=== PATIENT | female | born 1950 | race Caucasian/White ===

== ENCOUNTER 2017-01-10 10:18 | Inpatient (IN) | payer OTHER ==
[2016-12-13 09:26] VITALS: BMI 32.0
--- NOTE | 2016-12-13 09:47 | PAT Medication Instructions ---
Service Date Dec 13, 2016. Current Home Medication List Acetaminophen (Tylenol Arthritis Ext Rel), 1,300 MG PO PRN Hydrochlorothiazide (Hydrochlorothiazide), 1 TAB PO QAM Levothyroxine Sodium (Levothyroxine Sodium), 1 TAB PO QAM Metoprolol Tartrate (Lopressor) (Lopressor), 50 MG PO QAM Multivitamin (Multivitamin), 1 TAB PO QAM Valsartan (Diovan), 80 MG PO QAM Medication Instructions For Your Scheduled Surgery - Hold the following medications the morning of surgery: Multivitamin (Multivitamin), 1 TAB PO QAM Valsartan (Diovan), 80 MG PO QAM Hydrochlorothiazide (Hydrochlorothiazide), 1 TAB PO QAM - Take the following medications the morning of surgery with a sip of water OTHERWISE NOTHING TO EAT OR DRINK AFTER MIDNIGHT: Levothyroxine Sodium (Levothyroxine Sodium), 1 TAB PO QAM Metoprolol Tartrate (Lopressor) (Lopressor), 50 MG PO QAM Acetaminophen (Tylenol Arthritis Ext Rel), 1,300 MG PO PRN (may take if needed up to 4 hours prior to surgery) If you have any questions please call us at [phone] or [phone] or [phone]
[2016-12-13 10:33] LABS: BASO % 0.6 %; BASO ABS # 0.04 K/uL (0-0.2); COMPLETE YES; EOS % 1.8 %; HEMATOCRIT 42.5 % (37-47); IG% 0.2 %; LYMPH % 24.5 %; LYMPH ABS # 1.62 K/uL (1.2-3.4); MEAN CORPUSCULAR HEMOGLOBIN 29.6 pg (25-34); MEAN CORPUSCULAR HGB CONC 34.8 g/dl (32-36); MEAN PLATELET VOLUME 10.1 fL (7.4-10.4); MONO % 7.9 %; PLATELET COUNT 254 K/uL (130-400); WHITE BLOOD COUNT 6.61 K/uL (4.8-10.8)
[2016-12-13 10:45] LABS: INR 0.9 (0.9-1.1)
[2016-12-13 10:59] LABS: BUN/CREATININE RATIO 15.4 (10-20); C-REACTIVE PROTEIN 0.35 mg/dl (0-0.29); CALCIUM 8.8 mg/dl (8.5-10.1); CREATININE 0.82 mg/dl (0.60-1.20); POTASSIUM 3.3 mmol/L (3.5-5.1)
--- NOTE | 2017-01-07 15:36 | HISTORY & PHYSICAL EXAMINATION ---
DATE OF ADMISSION: 01/10/2017 CHIEF COMPLAINT: Left knee pain. HISTORY OF PRESENT ILLNESS: A 66-year-old white female who is now about a year out from right hip replacement who presents for surgical treatment of her left knee. She has got a history of bilateral knee pain and discomfort that has been bothering her for several years. She has been through extensive conservative treatment. The shots helped for about 6 weeks and that is about it. 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 Pain is mostly with weightbearing. It is fairly constant. It hurts her at nighttime. It limits her walking tolerance and ability to stand. She would like to have her left knee replaced. PAST MEDICAL HISTORY: 1. Hypertension. 2. Hypothyroidism. 3. Hepatitis. 4. Mild obesity with BMI 32. PAST SURGICAL HISTORY: Include: 1. Right hip replacement done 01/27/2016. 2. . 3. Hysterectomy. ALLERGIES: LISINOPRIL. CURRENT MEDICINES: Include: 1. Diovan 80 mg daily. 2. Hydrochlorothiazide 12.5 mg a day. 3. Metoprolol 50 mg a day. 4. Levothyroxine 25 mcg a day. SOCIAL HISTORY: A 66-year-old white female. 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 She is . She is going to retire at the end of this year. One drink per week. Does not smoke. FAMILY HISTORY: Significant for diabetes. REVIEW OF SYSTEMS: Negative for diabetes, neurologic problems, vascular problems or bleeding disorders. Denies any current chest pain or shortness of breath. No history of DVT or PE. PHYSICAL EXAMINATION: GENERAL: Reveals a healthy, pleasant middle-aged female. Looks to be in good health. HEAD, EYES, EARS, NOSE, AND THROAT: Exam is benign. NECK: Supple. No lymphadenopathy. LUNGS: Clear to auscultation. HEART: Has a regular rate and rhythm. ABDOMEN: Soft, nontender, nondistended. EXTREMITY EXAMINATION: Grossly neurovascularly intact except as follows: Examination of the left knee reveals the patient to walk and has valgus alignment to her left knee, it is made worse with weightbearing. She has a small knee effusion. Range of motion is 5-120. No instability. No pain with hip motion. X-RAYS: X-rays of the left knee were reviewed. It shows advanced left knee DJD. She has got complete loss of her lateral joint space. She has got osteophytes primarily in the lateral compartment and some in all 3 compartments. She has patellofemoral disease as well. ASSESSMENT: A 66-year-old white female about a year out from right hip replacement with advanced left knee degenerative joint disease. She has failed conservative treatment and would like to have her left knee replaced. PLAN: We are going to take her to the operating room and do a left total knee replacement. The risks and benefits of this procedure were explained to the patient including but not limited to DVT, PE, , infection, neurologic injury, vascular injury, bleeding problems, pain, limited range of motion, stiffness, failure to relief symptoms, incomplete relief of symptoms, need for further surgery in the future, fracture, leg length inequality, nerve palsy, etc. The patient understands and desires to proceed. Informed consent was obtained. As far as discharge plans, she is hoping to be discharged to home with the [facility] home health program. I will be seeing her back 2 weeks postop. We did talk to her about taking her metoprolol the morning of surgery as well as levothyroxine.
[~2017-01-10] VITALS: Ht 167.6 cm; Wt 89.4 kg
[~2017-01-10 10:18] MED LIST: ACET1TAB84 PO; ACETAMINOPHEN 500 MG TAB PO SCH; BUPIVACAINE 0.5 % 5 MG/1 ML PF 10ML VIAL ONE; BUPIVACAINE LIPOSOME 266 MG, BUPIVACAINE/EPINEPHRINE INJ 50 ML, SODIUM CHLORIDE 0.9% PF... INFIL SCH; CEFAZOLIN 2000 MG/60 ML D5W 60 ML IV SCH; DVN80 PO; GABAPENTIN 300 MG CAP PO SCH; HYDR12.55 PO; LACTATED RINGER'S 1000ML 1,000 ML IV SCH; LACTATED RINGER'S 1000ML IV SCH; LACTATED RINGER'S 500 ML IV SCH; LEVO25TA5 PO; METO100T14 PO; METOCLOPRAMIDE HCL 10 MG TAB PO SCH; MULT-506 PO; ROPIVACAINE 0.5% 5 MG/ML 30 ML VIAL ONE; SCOPOLAMINE 1.5 MG TDSY TD SCH; TRANEXAMIC ACID INJ 1,000 MG in SODIUM CHLORIDE 0.9% 100ML 100 ML IV SCH
[2017-01-10 10:50] VITALS: BP 183/80; PULSE 57; TEMP 36.4; O2SAT 97; Ht 167.6 cm; Wt 89.4 kg
--- NOTE | 2017-01-10 11:44 | History & Physical Bridge Note ---
H&P Re-Evaluation Bridge Note: I have examined the patient, reviewed the History & Physical and in the interval since the performance of the History & Physical I have noted the following changes of clinical significance: No changes noted
[2017-01-10] MEDS ORDERED: MIDAZOLAM HCL 1 MG/ML 2ML VIAL ONE ×3 (13:03→14:44)
[2017-01-10] MEDS ORDERED: EpHEDrine SULFATE INJ 50 MG/ML AMP IV PRN ×2 (13:30)
[2017-01-10] MEDS ORDERED: ATROPINE SULFATE 0.1 MG/ML 5ML SYR IV PRN ×2 (13:30)
[2017-01-10] MEDS ORDERED: PHENYLEPHRINE 100MCG/ML 5ML SYR IV PRN ×2 (13:30)
[2017-01-10] MEDS ORDERED: HYDROmorphone INJ 2 MG/ML SYR/VIAL IV PRN ×2 (13:30)
[2017-01-10] MEDS ORDERED: ONDANSETRON INJ 2 MG/ML 2 ML VIAL IV PRN ×3 (13:30→15:45)
[2017-01-10] MEDS ORDERED: BUPIVACAINE LIPOSOME 1/3% 266 MG/20 ML VIAL INFIL ONE ×2 (13:44→14:15)
[2017-01-10] MEDS ORDERED: SODIUM CHLORIDE 0.9% PF 50 ML VIAL ONE ×2 (13:44→14:14)
[2017-01-10] MEDS ORDERED: BACITRACIN 50000 UNIT VIAL ONE (13:44)
[2017-01-10] MEDS ORDERED: BUPIVACAINE/EPINEPHRINE 0.25% 1:200,000 30 ML VIAL ONE (13:44)
[2017-01-10] MEDS ORDERED: PROPOFOL IV EMULSION 10 MG/ML 20 ML VIAL IV ONE ×2 (13:47→14:00)
[2017-01-10] MEDS ORDERED: LIDOCAINE HCL 2% 2 ML VIAL (20MG/ML) ONE ×2 (14:00→15:35)
--- NOTE | 2017-01-10 15:32 | [facility] Post Operative Brief Note ---
Immediate Operative Summary Operative Date Jan 10, 2017. Pre-Operative Diagnosis Left Knee Degenerative Joint Disease Post-Operative Diagnosis Left Knee Degenerative Joint Disease Procedure(s) Performed Left Total Knee Arthroplasty Surgeon Dr. Rudy Jameson Co Chairman Surgeon(s) Yoel Santoro PA-C Estimated Blood Loss 50 ml Findings Left Knee DJD Fluids (cc crystalloids) 1500 cc Specimens A. Left Knee Bone and Tissue Drains None Anesthesia Spinal Complication(s) None Disposition Recovery Room / PACU
[2017-01-10] MEDS ORDERED: DiphenhydrAMINE HCL 50 MG/ML VIAL IV PRN (15:45)
[2017-01-10] MEDS ORDERED: MoRPHine SULFATE 2 MG/ML CARP IV PRN (15:45)
[2017-01-10] MEDS ORDERED: METOCLOPRAMIDE HCL INJ 5 MG/ML 2 ML VIAL IV PRN (15:45)
[2017-01-10] MEDS ORDERED: MAGNESIUM HYDROXIDE SUSP 30 ML UDC PO PRN (15:45)
[2017-01-10] MEDS ORDERED: ALUMINUM/MAGNESIUM/SIMETH (MAALOX MAX) 30 ML UDC PO PRN (15:45)
[2017-01-10] MEDS ORDERED: SILVER SULFADIAZINE 1% CR 50 GM JAR EXT PRN (15:45)
[2017-01-10] MEDS ORDERED: ZOLPIDEM TARTRATE 5 MG TAB PO PRN (15:45)
[2017-01-10] MEDS ORDERED: BISACODYL 10 MG SUPP PR PRN (15:45)
--- NOTE | 2017-01-10 15:59 | DIAGNOSTIC IMAGING REPORT ---
TWO VIEWS LEFT KNEE CLINICAL HISTORY: Postoperative examination. FINDINGS: AP and crosstable lateral portable views of the left knee are obtained. A left knee arthroplasty is in near anatomic alignment. There has been undersurface remodeling of the patella. No acute fracture is seen. There are expected postoperative changes around the knee including skin clips, soft tissue edema, and subcutaneous gas. IMPRESSION: Expected postoperative changes status post left knee arthroplasty. No acute fracture is seen. Electronically signed by: Daniel Walker M.D. 01/10/2017 3:58 PM Dictated Date/Time: 01/10/2017 3:57 PM
[2017-01-10] MEDS: CHECK SCOPOLAMINE PATCH PLACEMENT SCH (16:00)
--- NOTE | 2017-01-10 16:55 | Anesthesiology Progress Note ---
Anesthesia Post Op Note Date & Time Jan 10, 2017 at 16:55 Vital Signs Pain Intensity: 0 Vital Signs Past 12 Hours Date Time Temp Pulse Resp B/P Pulse Ox O2 Delivery O2 Flow Rate FiO2 01/10/17 16:45 50 16 121/51 96 Nasal Cannula 2 01/10/17 16:30 36.4 49 16 135/67 96 Nasal Cannula 2 01/10/17 16:20 36.4 53 16 106/62 99 Nasal Cannula 2 01/10/17 16:10 53 16 145/60 99 Nasal Cannula 2 01/10/17 16:00 53 16 145/58 99 Nasal Cannula 2 01/10/17 15:50 49 16 131/61 100 Mask 10 01/10/17 15:40 36.8 49 16 125/54 100 Mask 10 01/10/17 10:50 36.4 57 16 183/80 97 Room Air Notes Mental Status: alert / awake / arousable, participated in evaluation Pt Amnestic to Procedure: Yes Nausea / Vomiting: adequately controlled Pain: adequately controlled Airway Patency, RR, SpO2: stable & adequate BP & HR: stable & adequate Hydration State: stable & adequate Neuraxial Anesthesia: was administered, sensory block is resolving Anesthetic Complications: no major complications apparent
[2017-01-10] MEDS ORDERED: HYDROmorphone INJ 1 MG/ML SYR ONE (19:02)
--- NOTE | 2017-01-10 19:26 | OPERATIVE REPORT ---
DATE OF OPERATION: 01/10/2017 SURGEON: Rudy Jameson MD SECURITY RISK ANALYST: DIMITRI Rebollar. PREOPERATIVE DIAGNOSIS: Left knee degenerative joint disease. POSTOPERATIVE DIAGNOSIS: Same. PROCEDURE PERFORMED: Left cemented posterior stabilized total knee arthroplasty. COMPLICATIONS: None. ESTIMATED BLOOD LOSS: 50 mL. FLUID REPLACEMENT: 1500 mL crystalloid fluid replacement. TOURNIQUET TIME: 49 minutes at 300 mmHg. ANESTHESIA: Spinal with adductor canal block. DRAINS: None. SPECIMENS: Left knee sent for pathology. OPERATIVE INDICATIONS: The patient is a 66-year-old female who has had a long history of orthopedic symptoms and problems. She underwent a right hip replacement 1 year ago and has done well from this. Over the past year, she has developed increasing and persistently progressive pain in her left knee. She has failed conservative treatment. X-rays revealed advanced lateral compartment DJD with complete loss of her joint space. The patient is indicated for operative treatment. OPERATIVE FINDINGS: Operative findings revealed advanced left knee DJD. She had grade 4 [id number] disease of the lateral femoral condyle and lateral tibial plateau. She had a valgus deformity to her knee. She also got grade 4 changes of the trochlea and to her patella. The medial compartment showed some spotty grade 4 changes. She had a moderate sized joint effusion. OPERATIVE IMPLANTS: Operative implants consisted of: 1. A Biomet Vanguard size 62.5 left posterior stabilized femoral component. 2. Biomet size 67 tibial tray. 3. A Biomet 10 mm posterior stabilized polyethylene insert. 4. A 31 x 8 all poly patella. OPERATIVE PROCEDURE: The patient was taken to the operating room, identified and placed on the operating table in supine position. All contact areas were appropriately padded. IV antibiotics were provided by anesthesia team. A spinal anesthetic and adductor canal block had been provided in the holding area. Fritz catheter was placed in sterile fashion. A left thigh tourniquet was then placed and left lower extremity was then prepped and draped in the usual sterile fashion. Left leg was elevated and exsanguinated with an Esmarch and tourniquet was placed at 300 mmHg. An anterior approach to the left knee was then performed through a longitudinal incision centered over the patella. Sharp dissection was carried out through the subcutaneous tissue, down to the level of the extensor mechanism. A medial parapatellar arthrotomy incision was made. Some subperiosteal dissection was carried out medially. The fat pad was resected from beneath the patellar tendon. The lateral patellofemoral ligament was released. The patella was everted and knee was flexed. The osteophytes were taken off the distal femur. The ACL was absent. The PCL was released from the distal femur and the tibia subluxated anteriorly. The external tibial alignment jig was then placed in the anterior face of the tibia and adjusted 12 mm medially. Proximal tibial cut was made to remove about 3 mm of bone from the medial side. The tibia was then sized to a size 67. Attention was then drawn to the femur. The distal femur was entered with a sharp drill bit. Intramedullary canal was suctioned. A left 5-degree valgus cutting guide was placed. Distal femoral cutting block was pinned in place. Distal femoral cut was made to take an additional 3 mm of bone off the distal femur. The knee was brought out into full extension. The flexion and extension gaps were equal. Therefore, no lateral release was performed. The femur was then sized to a 62.5. We did downsize this just slightly. The AP cutting block was pinned parallel to the epicondylar axis, which was 5 degrees of external rotation. The anterior cut, anterior chamfer, posterior cut, posterior chamfer cuts were made. Box cutting guide was placed and adjusted slightly lateral and the box cut was made. The knee was flexed. The remnants of the medial and lateral menisci were excised. The osteophytes were taken off the posterior aspect of the femur. I did release the popliteus tendon as the flexion gap was tight on the lateral side. A trial femoral component was placed. The tibial tray was pinned in maximum external rotation and drill and stem punch were used to create defect in proximal tibia for the tibial tray. The knee was then trialed and a 10 mm insert fit most appropriately. Attention was then drawn to the patella. The patella was cleaned of all soft tissues. Patellar thickness measured 22 mm, was cut down to 13. It was sized to a size 31 patella. Lug holes were drilled for the 31 patella. Lateral osteophyte was removed. Patella button was placed. Knee was taken through range of motion and the patella tracked nicely with no thumbs test. Attention was then drawn toward placement of the permanent components. All trial components were removed. The knee was irrigated with copious amounts of pulsatile lavage solution. A bone plug was placed in the distal femur to limit blood loss. A double batch of Palacos G cement was mixed. A left size 62.5 posterior stabilized femoral component, size 67 tibial tray, 10 mm posterior stabilized polyethylene insert, and a 31 x 8 all poly patella were then cemented in place. Knee was brought out into full extension until cement hardened. A final cement check was then performed. Pericapsular tissues were injected with 100 mL of a combination of 20 mL of Exparel, 30 mL of normal saline, 50 mL of 0.25% Marcaine with epinephrine. The patient did receive 1 gram of tranexamic acid. The tourniquet was then let down for a final tourniquet time of 49 minutes. Hemostasis was assured with use of electrocautery. The wound was once again irrigated. The extensor mechanism was then closed with a combination of #1 PDS suture and #1 Vicryl suture in a [id number] fashion. Extensor mechanism was checked and found to be intact. The subcutaneous tissues were then closed with 2-0 Dexon suture in a buried interrupted fashion. Skin was closed with skin albert. Leg was then cleaned and dried and a sterile dressing composed of Xeroform, 4 x 4, sterile cast padding and Suresh bandage were applied. The patient then transferred to the recovery room in stable condition. The patient tolerated the procedure well with no complications. All needle and sponge counts were correct at the end of the operation. I attest to the content of the Intraoperative Record and any orders documented therein. Any exceptio ns are noted below.
[2017-01-10 20:50] VITALS: BP 146/80; PULSE 50; TEMP 36.8; O2SAT 97
[2017-01-10] MEDS ORDERED: TRANEXAMIC ACID INJ 1,000 MG in SODIUM CHLORIDE 0.9% 100ML 100 ML IV SCH (21:00)
[2017-01-10 21:50] VITALS: BP 145/78; PULSE 54; TEMP 36.6; O2SAT 98
[2017-01-10] MEDS: D5W AND 1/2NSS + 20MEQ KCL 1,000 ML IV SCH (21:54)
[2017-01-10] MEDS: CEFAZOLIN IV 2,000 MG in DEXTROSE 5% 50ML 50 ML IV SCH (21:54)
[2017-01-10] MEDS: DOCUSATE SODIUM 100 MG CAP PO SCH (21:55)
[2017-01-10] MEDS: TAPENTADOL ER 50 MG TABCR PO SCH (21:56)
[2017-01-10] MEDS: KETOROLAC TROMETHAMINE 15 MG/ML VIAL IV. SCH (21:56)
[2017-01-10] MEDS: ASPIRIN 325 MG ECTAB PO SCH (21:56)
[2017-01-10] MEDS: ACETAMINOPHEN 500 MG TAB PO SCH (21:57)
[2017-01-10 23:42] VITALS: BP 128/75; PULSE 57; TEMP 36.5; O2SAT 98
[2017-01-11] VITALS (9 sets, daily range): BP systolic 132–169; BP diastolic 72–88; PULSE 51–74; TEMP 36.4–36.9; O2SAT 95–99
[2017-01-11] MEDS: KETOROLAC TROMETHAMINE 15 MG/ML VIAL IV. SCH ×4 (03:48→22:01)
[2017-01-11] MEDS: OXYCODONE HCL IR 5 MG TAB (IMMEDIATE RELEASE) PO PRN ×3 (05:56→21:10)
[2017-01-11] MEDS: CEFAZOLIN IV 2,000 MG in DEXTROSE 5% 50ML 50 ML IV SCH (05:56)
[2017-01-11] MEDS: LEVOTHYROXINE 25 MCG TAB PO SCH (05:57)
[2017-01-11] MEDS: ACETAMINOPHEN 500 MG TAB PO SCH ×3 (05:58→22:00)
[2017-01-11] MEDS: D5W AND 1/2NSS + 20MEQ KCL 1,000 ML IV SCH ×2 (05:58→16:15)
[2017-01-11 06:55] LABS: HEMATOCRIT 37.5 % (37-47); MEAN CELL VOLUME 86.4 fL (80-100); MEAN CORPUSCULAR HGB CONC 33.6 g/dl (32-36); MEAN PLATELET VOLUME 10.1 fL (7.4-10.4); PLATELET COUNT 252 K/uL (130-400); RED BLOOD COUNT 4.34 M/uL (4.2-5.4); WHITE BLOOD COUNT 9.75 K/uL (4.8-10.8)
[2017-01-11 07:29] LABS: BUN/CREATININE RATIO 11.6 (10-20); CREATININE 0.8 mg/dl (0.60-1.20); POTASSIUM 3.7 mmol/L (3.5-5.1)
[2017-01-11] MEDS: CHECK SCOPOLAMINE PATCH PLACEMENT SCH ×3 (07:41→15:36)
[2017-01-11] MEDS: MULTIVITAMIN TAB PO SCH ×2 (08:44→08:46)
[2017-01-11] MEDS: TAPENTADOL ER 50 MG TABCR PO SCH ×2 (08:46→21:09)
[2017-01-11] MEDS: DOCUSATE SODIUM 100 MG CAP PO SCH ×2 (08:47→21:09)
[2017-01-11] MEDS: HYDROCHLOROTHIAZIDE 25 MG TAB PO SCH (08:47)
[2017-01-11] MEDS: PANTOprazole SOD 40 MG TAB PO SCH (08:47)
[2017-01-11] MEDS: ASPIRIN 325 MG ECTAB PO SCH ×2 (08:47→21:09)
[2017-01-11] MEDS: FERROUS GLUCONATE 324 MG TAB PO SCH ×3 (08:47→17:10)
[2017-01-11] MEDS: VALSARTAN 80 MG TAB PO SCH (08:47)
[2017-01-11] MEDS: METOPROLOL TARTRATE 100 MG TAB PO SCH (08:48)
[2017-01-11] MEDS ORDERED: HYDROCHLOROTHIAZIDE 25 MG TAB PO SCH (09:00)
--- NOTE | 2017-01-11 09:52 | PROGRESS NOTE ---
DATE: 01/11/2017 SUBJECTIVE: A 66-year-old white female postop day #1 from a left knee replacement. She is doing well. Pain is reasonably well controlled. No chest pain or shortness of breath. Not feeling dizzy or lightheaded. OBJECTIVE: VITAL SIGNS: Temperature is 36.4. Vital signs stable. PHYSICAL EXAMINATION: GENERAL: Reveals a healthy, pleasant middle-aged female. She is sitting up in her bed and talking to her . Looks comfortable. LUNGS: Clear to auscultation. HEART: Regular rate and rhythm. ABDOMEN: Soft, nontender, nondistended. EXTREMITIES: Grossly neurovascularly intact except as follows: Examination of the left lower extremity reveals the dressing to be clean, dry and intact. Leg is well aligned. She can dorsiflex and plantarflex her foot appropriately. She is neurologically intact. LABORATORY DATA: Hemoglobin 12.6, hematocrit 37.5. Electrolytes are stable. ASSESSMENT: A 66-year-old white female postop day #1 from a left knee replacement, doing pretty well. Pain is controlled. She is neurologically intact. PLAN: 1. DVT prophylaxis including thigh-high TEDs, SCDs, and aspirin twice a day. 2. PT/OT. Weightbearing as tolerated. Left total knee protocol. 3. Pain control, doing pretty well with current pain regimen. 4. Disposition: She is planning to be discharged to home with some home health once adequately recovered.
--- NOTE | 2017-01-11 12:55 | Anesthesiology Progress Note ---
Anesthesia Post Op Note Date & Time Jan 11, 2017 at 12:54 Vital Signs Vital Signs Past 12 Hours Date Time Temp Pulse Resp B/P Pulse Ox O2 Delivery O2 Flow Rate FiO2 01/11/17 12:41 58 99 01/11/17 11:40 36.6 62 20 148/80 95 Room Air 01/11/17 08:40 96 Room Air 01/11/17 07:55 36.4 51 16 146/80 96 Room Air 01/11/17 07:37 36.9 52 20 144/88 96 Room Air 01/11/17 04:34 95 Nasal Cannula 2.0 01/11/17 03:35 36.6 74 18 133/74 95 Nasal Cannula 2.0 Notes Mental Status: alert / awake / arousable, participated in evaluation Pt Amnestic to Procedure: Yes Nausea / Vomiting: adequately controlled Pain: adequately controlled Airway Patency, RR, SpO2: stable & adequate BP & HR: stable & adequate Hydration State: stable & adequate Neuraxial Anesthesia: was administered, sensory block resolved Anesthetic Complications: no major complications apparent
[2017-01-11] MEDS ORDERED: RXC5 PO (21:24)
[2017-01-11] MEDS ORDERED: MORP15TA19 PO (21:24)
[2017-01-11] MEDS ORDERED: ASPEC325 PO (21:24)
[2017-01-11] MEDS ORDERED: ACET-1138 PO (21:24)
--- NOTE | 2017-01-11 21:26 | Discharge Instructions ---
Discharge Instructions Date of Service Jan 11, 2017. Admission Reason for Admission: Left Knee Degenerative Joint Disease Discharge Discharge Diagnosis / Problem: Left Knee Replacement Discharge Goals Goal(s): Decrease discomfort, Improve function, Increase independence, Improve disease control, Therapeutic intervention Activity Recommendations Activity Limitations: per Instructions/Follow-up section . Current Hospital Diet Patient's current hospital diet: Regular Diet Discharge Diet Recommended Diet: Regular Diet Procedures Procedures Performed: Left Total Knee Arthroplasty Pending Studies Studies pending at discharge: no Medical Emergencies . Who to Call and When: Medical Emergencies: If at any time you feel your situation is an emergency, please call 911 immediately. . Non-Emergent Contact Non-Emergency issues call your: Surgeon . "Provider Documentation" section prepared by Rudy Jameson. VTE Core Measure Inpt VTE Proph given/why not?: Other Anticoagulation, T.E.D. Stockings, SCD's
[2017-01-12] MEDS: CHECK SCOPOLAMINE PATCH PLACEMENT SCH
[2017-01-12] MEDS: KETOROLAC TROMETHAMINE 15 MG/ML VIAL IV. SCH ×2 (04:17→10:14)
[2017-01-12] MEDS: ACETAMINOPHEN 500 MG TAB PO SCH (05:49)
[2017-01-12] MEDS: LEVOTHYROXINE 25 MCG TAB PO SCH (05:49)
--- NOTE | 2017-01-12 07:28 | PROGRESS NOTE ---
DATE: 01/12/2017 SUBJECTIVE: 66-year-old white female postop day 2 from a left knee replacement. She is doing well. Pain has been controlled. Soreness but manageable. No chest pain or shortness of breath. Not feeling dizzy or lightheaded. OBJECTIVE: VITAL SIGNS: Temperature 36.8. Vital signs stable. PHYSICAL EXAMINATION: GENERAL: Reveals a healthy, pleasant middle-aged female. She is sitting up in bed and looks comfortable. EXTREMITIES: Examination of the left leg reveals the dressing to be clean, dry and intact. Leg is well aligned. Calf is soft and supple. She can dorsiflex and plantarflex her foot appropriately. She is neurologically intact. ASSESSMENT: 66-year-old white female postop day 2 from left knee replacement, doing well. PLAN: 1. DVT prophylaxis including thigh-high TEDS, SCDs, and aspirin twice a day. 2. PT/OT. Weightbearing as tolerated. Left total knee protocol. 3. Pain control, doing well with current pain regimen. 4. Disposition: Plan to discharge to home with some home health.
[2017-01-12 07:52] VITALS: BP 157/88; PULSE 76; TEMP 36.6; O2SAT 97
[2017-01-12] MEDS: FERROUS GLUCONATE 324 MG TAB PO SCH ×2 (08:34→12:45)
[2017-01-12] MEDS: ASPIRIN 325 MG ECTAB PO SCH (08:36)
[2017-01-12] MEDS: VALSARTAN 80 MG TAB PO SCH (08:36)
[2017-01-12] MEDS: DOCUSATE SODIUM 100 MG CAP PO SCH (08:36)
[2017-01-12] MEDS: HYDROCHLOROTHIAZIDE 25 MG TAB PO SCH (08:37)
[2017-01-12] MEDS: METOPROLOL TARTRATE 100 MG TAB PO SCH (08:37)
[2017-01-12] MEDS: MULTIVITAMIN TAB PO SCH ×2 (08:38)
[2017-01-12] MEDS: PANTOprazole SOD 40 MG TAB PO SCH (08:39)
[2017-01-12] MEDS: TAPENTADOL ER 50 MG TABCR PO SCH (08:50)
[2017-01-12 10:31] VITALS: BP 157/88; PULSE 76; TEMP 36.6; O2SAT 97
--- NOTE | 2017-01-12 11:36 | Discharge Instructions ---
Discharge Instructions Date of Service Jan 12, 2017. Admission Reason for Admission: Left Knee Degenerative Joint Disease Discharge Discharge Diagnosis / Problem: Left Knee REplacement Discharge Goals Goal(s): Decrease discomfort, Improve function, Increase independence, Improve disease control, Therapeutic intervention Activity Recommendations Activity Limitations: per Instructions/Follow-up section Weightbearing Status: Left weightbearing . Instructions / Follow-Up Instructions / Follow-Up ACTIVITY RECOMMENDATIONS: Physical Therapy: * You will go to physical therapy three times each week for four to six weeks after your surgery in order to regain your knee range of motion and to retrain your knee to work properly. * It is just as important to make sure you are getting your knee perfectly straight as it is to regain your knee bend. * Taking a pain pill an hour before therapy can help you have a more productive and comfortable therapy session. Home Exercise: * You were shown a series of exercises (heel props, heel slides, etc.) in the hospital. Do these exercises three to four times each day including the exercises you were shown in physical therapy. Walking: * Get up and walk several times each day. For the first four weeks, try not to stand or walk for more than one hour at a time. If you do stand or walk for more than one hour, you will not hurt anything, but your knee and leg will likely swell. * As you feel comfortable, you may change from the walker or crutches to a cane and then to independent walking. MEDICATIONS: New Medicine: * You will likely be taking one or more of these medications: 1. MS Contin - A long-acting pain medication. Take 1 tablet twice a day for the first ten days to decrease your baseline level of pain. 2. Oxycodone - A quick and shorter-acting pain medication. Take one to two tablets every four to six hours to lessen your pain. 3. Aspirin - Thins your blood to lessen the chance of forming a blood clot. * The most common side effects of pain medicine and iron are nausea and constipation. If nausea or constipation is too much of a problem or if you have any questions about your new medicines or doses, call [facility] at [phone]. We will try to help you manage these issues. VERY IMPORTANT TO READ AND REVIEW" Pain: * The immediate post-operative period after knee replacement surgery is often quite painful. * You are given a prescription for pain medicine. You should take it, as directed, when you need it, especially before physical therapy and before going to bed. Pain that interferes with sleep is very common and can last several months. * You will likely need pain medicine for the first four to six weeks. It will not stop all of the pain. The pain will lessen and as you feel better, you may change to milder pain medicine such as Tylenol. * The most common side effects of pain medicine are nausea and constipation, so don't take more than you need. SPECIAL CARE INSTRUCTIONS: TEDs/Elastic Stockings: * The white elastic stockings help limit swelling and prevent blood clots from forming in your legs. The more you wear them, the more they work. * Wear them for six weeks after knee replacement surgery and four weeks after partial knee replacement. Prevention of Infection: * Take antibiotics one hour before any dental cleaning, dental work, urological procedure, gastrointestinal procedure or any invasive surgery in order to prevent your new joint from getting infected. * You may get the antibiotics from the doctor performing the procedure or you may call our office at before and we will call in a prescription to the pharmacy of your choice. Things to Watch For: * Drainage from the incision site that occurs more than one week after your surgery. * Severely increased knee/leg pain or swelling. * Increased redness at the incision site. * Fever above 102 degrees Fahrenheit. * Unusual chest pain or shortness of breath. * Unusual pain or burning with urination. Call [facility] at with any of the above problems or if you have any questions about your medicines or recovery. FOLLOW UP VISIT: Make an appointment to see your doctor for approximately two weeks after surgery for a progress check and staple removal by calling the office at . Current Hospital Diet Patient's current hospital diet: Regular Diet Discharge Diet Recommended Diet: Regular Diet Procedures Procedures Performed: Left Total Knee Arthroplasty Pending Studies Studies pending at discharge: no Medical Emergencies . Who to Call and When: Medical Emergencies: If at any time you feel your situation is an emergency, please call [phone] immediately. . Non-Emergent Contact Non-Emergency issues call your: Surgeon . "Provider Documentation" section prepared by Rudy Jameson. VTE Core Measure Inpt VTE Proph given/why not?: Other Anticoagulation, T.E.D. Stockings, SCD's
--- NOTE | 2017-01-19 01:54 | DISCHARGE SUMMARY ---
ADMITTING PHYSICIAN AND SURGEON: Dr. Jameson. ADMITTING DIAGNOSIS: Left knee degenerative joint disease. SURGERY PERFORMED: Left total knee arthroplasty. SECONDARY DIAGNOSES: Hypertension, hypothyroidism, hepatitis, mild obesity. CONSULTS: None obtained. HISTORY AND PHYSICAL EXAMINATION: Well documented in the patient's chart. HOSPITAL COURSE: The patient was admitted on 01/10/2017 underwent total knee arthroplasty. She tolerated the procedure well. There were no complications and transferred to the PACU postoperatively and later to the orthopedic floor for further care. She was given Ancef for antibiotic prophylaxis, ANNA MARIE stockings, SCDs and aspirin for DVT prophylaxis. Hemoglobin, hematocrit and vital signs were monitored during her hospital stay and remained stable. She did not require any blood transfusions. There were no complications. By postoperative day 2, she was tolerating a general diet, pain was controlled with oral pain medicine. She was participating in physical therapy and had no signs or symptoms of deep vein thrombosis. On postop day 2, she was discharged home in good condition, set up with home health services. She was given printed discharge instructions including Extra Strength Tylenol, aspirin 325 mg b.i.d., MS Contin and oxycodone. She can continue her home medications with the exception of her home dose of Tylenol. Continue physical therapy, weightbearing as tolerated, ANNA MARIE stockings. Follow up in 10-12 days or sooner if there are problems or concerns.
== END 2017-01-12 13:04 | disposition home health service (06) | DRG 470 ==
LOC: ENRESERVDT → ENRESERVTM → C.ACU 10:18 → C.3E 15:36
PROVIDERS: ADMIT Orthopaedic Surgery Sports Medicine; ATTEND Orthopaedic Surgery Sports Medicine
PROC: 0SRD0J9 Replacement of Left Knee Joint with Synthetic Substitute, Cemented, Open Approach (ICD-10-PCS; principal; 2017-01-10 12:30)
DX: M17.12 Unilateral primary osteoarthritis, left knee (principal); M21.062 Valgus deformity, not elsewhere classified, left knee; M25.462 Effusion, left knee; I10 Essential (primary) hypertension; E03.9 Hypothyroidism, unspecified; E66.9 Obesity, unspecified; Z68.32 Body mass index [BMI] 32.0-32.9, adult; Z96.641 Presence of right artificial hip joint; Z86.19 Personal history of other infectious and parasitic diseases; Z79.899 Other long term (current) drug therapy

== ENCOUNTER 2020-12-29 05:12 | Observation (INO) ==
--- NOTE | 2020-12-10 09:12 | Anesthesiology Consultation ---
Date of Service December 10, 2020 Assessment & Plan (1) Encounter for pre-operative examination: Per assessment on 12/10: Travel screen- Lives in [facility]. 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 Uses PPE in public. Advised importance of following strict COVID precaution guidelines especially after preop COVID testing done. No known COVID- 19 positive contacts or current COVID-19 related symptoms. Surgeon arranging preop COVID testing (scheduled 12/23; Gopal Houstonfloridalma). Awaiting results. Chart Review Chart Review: Acceptable Risk for Surgery and Patient seen in Pre Admission Testing Teaching & Discussion Pre-Anesthesia Teaching/Discussion Notes: Instructed NPO after midnight before surgery,except medications with 15 cc of water. Medication instructions provided according to the PAT guidelines. History Surgery Operation Date: 12/29/20 10:55 Proposed Procedures p Left Total Hip Arthroplasty - Rudy Jameson MD Height/Weight Height: 5 ft 6 in Weight: 92.6 kg Allergies Allergy/AdvReac Type Severity Reaction Status Date / Time crab Allergy Unknown Rash, hives Verified 12/07/20 14:47 CYNTHIA Inhibitors AdvReac Unknown Cough Verified 12/07/20 14:47 Medications Home Medications Medication Instructions Recorded Confirmed Last Taken valsartan 80 mg PO DAILY 12/10/20 12/10/20 Unknown Past Medical History Medical History Arthritis of left hip Hypertension Migraine hx Obesity Ulcerative colitis stable Exercise / Class Metabolic Activity III < 4 Walking/Shop/Light housework Past Family History Family History Father Family history of diabetes mellitus Past Surgical History Surgical History History of section History of cholecystectomy History of colonoscopy Multiple History of esophagogastroduodenoscopy (EGD) History of hysterectomy Total History of left knee replacement 2017 History of right hip replacement 2016 Past Anesthesia History No Hx of Anesthesia Complications (except PONV) and No Family Hx of Anesthesia Complications History of PONV History of PONV (with remote surgery (no issue with left TKA)) and Hx of Motion Sickness (remote hx) Social History Smoking Status: Former smoker Do You Dip or Chew Tobacco: No Smoking End Date: Social use in college Hx Alcohol Use: Yes Alcohol type: beer and hard liquor alcohol intake frequency: a few times a month Hx Substance Use: No Review of Systems Patient denies chest pain, shortness of breath, dyspnea on exertion, joint pain, reflux, cough, wheezing, palpitations. Physical Exam Vital Signs VITALS BP 164/77 (recently started on Valsartan; PCP monitoring) P 73 TEMP 98.2 SP02 95%RA RESP 16 PHYSICAL Full neck and c-spine range of motion. Full TMJ range of motion. TMD 3 finger breaths Mallampati Score 2 Dentition: several missing molars Lungs: clear throughout to auscultation Cardiac: regular rate and rhythm, no murmurs noted Spine: normal Carotid arteries: negative bruit Extremities: no edema Testing Laboratory Results 12/10/20 09:42 PT 9.8 Seconds (9.0-12.0) 12/10/20 09:42 INR 1.0 (0.9-1.1) 12/10/20 09:42 APTT 25.3 Seconds (21.0-31.0) 12/10/20 09:42 Blood Type AB Positive 12/10/20 09:42 Antibody Screen NEGATIVE 12/10/20 09:42 12/07/20 SODIUM 145 POTASSIUM 3.8 CHLORIDE 105 CO2 28 BUN 11 CREATININE 0.9 GLUCOSE 128 TSH 4.43 FREE T4 1.2 (WNL) Electrocardiogram Date: 12/11/20 NSR at 69bpm. Minimal voltage criteria for LVH, may be normal variant. No sign ificant change compared to 01/19/16 per equipment service lead review. Chest X-Ray Date: 12/10/20 FINDINGS: Cardiac silhouette is mildly enlarged. No pneumothorax, pleural effusion, airspace consolidation or overt pulmonary edema. Degenerative changes of the shoulders and spine. Mild convex right curvature of the mid to lower thoracic spine. Cholecystectomy. IMPRESSION: No acute process.
--- NOTE | 2020-12-10 10:08 | XRay Report ---
XR chest Pre-admission PA/Lat HISTORY: 70 years-old Female pat preoperative exam. No acute chest complaints COMPARISON: Chest radiographs 01/19/2016 TECHNIQUE: PA and lateral views of the chest FINDINGS: Cardiac silhouette is mildly enlarged. No pneumothorax, pleural effusion, airspace consolidation or o vert pulmonary edema. Degenerative changes of the shoulders and spine. Mild convex right curvature of the mid to lower thoracic spine. Cholecystectomy. IMPRESSION: No acute process. ACT 112: Negative or not required by law. The above report was generated using voice recognition software. It may contain grammatical, syntax o r spelling errors. Electronically signed by: Faizan Mcclendon M.D. 12/10/2020 10:07 AM
[2020-12-10 12:14] LABS: Partial Thromboplastin Time 25.3 Seconds (21.0-31.0); Prothrombin Time 9.8 Seconds (9.0-12.0)
[2020-12-10 12:22] LABS: Basophils # (auto) 0.03 K/uL (0-0.2); Basophils % (auto) 0.5 %; Eosinophils # (auto) 0.09 K/uL (0-0.5); Eosinophils % (auto) 1.5 %; Hematocrit (blood only) 45.1 % (37-47); Hemoglobin 15.5 g/dL (12.0-16.0); Immature Granulocytes # (auto) 0.01 K/uL (0.00-0.02); Immature Granulocytes % (auto) 0.2 %; Lymphocytes # (auto) 1.61 K/uL (1.2-3.4); Lymphocytes % (auto) 26.4 %; Mean Corpuscular Hemoglobin 28.8 pg (25-34); Mean Corpuscular Hgb Conc 34.4 g/dL (32-36); Mean Corpuscular Volume 83.8 fL (80-100); Mean Platelet Volume 10.6 fL (7.4-10.4); Monocytes # (auto) 0.54 K/uL (0.11-0.59); Monocytes % (auto) 8.8 %; Neutrophils # (auto) 3.83 K/uL (1.4-6.5); Neutrophils % (auto) 62.6 %; Platelet Count 260 K/uL (130-400); RDW Standard Deviation 42.8 fL (36.4-46.3); Red Blood Count 5.38 M/uL (4.2-5.4); White Blood Count 6.11 K/uL (4.8-10.8)
--- NOTE | 2020-12-10 16:53 | Electrocardiogram Report ---
Test Reason : Blood Pressure : / mmHG Vent. Rate : 069 BPM Atrial Rate : 069 BPM P-R Int : 206 ms QRS Dur : 092 ms QT Int : 432 ms P-R-T Axes : 051 -28 056 degrees QTc Int : 462 ms Normal sinus rhythm Minimal voltage criteria for LVH, may be normal variant Borderline ECG When compared with ECG of 19-JAN-2016 09:18, No significant change was found Confirmed by Deep Pan ([id number]) on 12/10/2020 4:52:57 PM Referred By: Rudy Jameson Confirmed By:Roman Pan
--- NOTE | 2020-12-25 19:28 | History and Physical Report ---
DATE OF ADMISSION: 12/29/2020 CHIEF COMPLAINT: Left hip and groin pain. HISTORY OF PRESENT ILLNESS: The patient is a 70-year-old female well known to me from a previous right hip replacement done in 2012 and left knee replacement done in 2016. Over the past 8 months, she has developed increased pain and discomfort in her left hip and groin area. No particular injury. It has gradually gotten worse to the point where it is a constant pain. She has a limited walking ability due to the pain. She has difficulty putting her shoes and socks on. The more she walks, the more she limps. Denies any back pain. No numbness or radicular symptoms. She has failed medical management. She would like to have her hip fixed. PAST MEDICAL HISTORY: 1. Mild obesity with BMI of 33. 2. Arthritis. 3. Hepatitis. PAST SURGICAL HISTORY: Includes, 1. . 2. Total hysterectomy. 3. Right hip replacement done on 01/26/2013. 4. Left knee replacement done on 01/10/2017. 5. Cholecystectomy. ALLERGIES: CYNTHIA INHIBITORS. CURRENT MEDICATIONS: Include, 1. Tylenol. 2. Aspirin. 3. Hydrochlorothiazide 4. Thyroid replacement. 5. Metoprolol. 6. Multivitamin. 7. Diovan. SOCIAL HISTORY: Significant for a 70-year-old female. She is . Does not smoke. FAMILY HISTORY: Noncontributory. REVIEW OF SYSTEMS: Negative for diabetes, neurologic problem, vascular problems or bleeding disorders. Denies any chest pain or shortness of breath. She does have a history of high blood pressure. No history of DVT or PE. PHYSICAL EXAMINATION: GENERAL: Shows a pleasant, middle-aged female. She looks to be in pretty good health. HEENT: Benign. NECK: Supple, no lymphadenopathy. LUNGS: Clear to auscultation. ABDOMEN: Soft, nontender, nondistended. EXTREMITIES: Grossly neurovascularly intact except as follows: Examination of the left hip revealed patient walks with an antalgic gait. She is about 0.5 cm short on the left side compared to the right, maybe it is up to 1 cm. She has pain with any type of hip motion. She has stiffness with internal rotation, which recreates her groin pain. She has got well-healed incisions around her knee with no swelling. Negative straight leg raise. X-RAYS: X-rays of the left hip reveal advanced left hip DJD. She has got concentric hip arthritis. She has got complete loss of the joint space. She has got osteophytes around the acetabulum and femoral head. The right hip replacement looks to be in good position without signs of problems. ASSESSMENT: A 70-year-old female with a history of hypertension, elevated cholesterol, and mild obesity, now status post right hip replacement 7 years ago and left knee replacement with advanced left hip degenerative joint disease. She has failed conservative treatment and would like to have her left hip replaced. PLAN: We will take her to the operating room and do a left total hip replacement. The risks and benefits of this procedure were explained to the patient including but not limited to DVT, PE, , infection, neurological injury, vascular injury, bleeding problem, pain, limited range of motion, stiffness, failure to relieve her symptoms, incomplete relief of symptoms, need for further surgery in the future, fracture, leg length inequality, dislocation, etc. The patient understands and desires to proceed. Informed consent was obtained. We will do the best we can to make her leg lengths equal. She had a lot of problems with side effects of oxycodone and we will use tramadol for postoperative pain control. We will likely give her some Decadron to help with postoperative nausea and Zofran and scopolamine patch. As far as discharge plans, she is planning to be discharged to home using [facility] home health program.
[2020-12-29] MEDS ORDERED: TRANEXAMIC ACID 1,000 MG **IV Pre-op IV SCH (06:00)
[2020-12-29] MEDS ORDERED: ceFAZolin 2000MG 2,000 MG/15 ML SYR IV SCH (06:00)
[2020-12-29] MEDS ORDERED: LR 500ML BOLUS, THEN 15ML/HR IV SCH (06:00)
[2020-12-29] MEDS ORDERED: ACETAMINOPHEN 500 MG TAB PO SCH (06:00)
[2020-12-29] MEDS ORDERED: METOCLOPRAMIDE HCL 10 MG TABLET PO SCH (06:00)
[2020-12-29] MEDS ORDERED: FAMOTIDINE 20 MG TAB PO SCH (06:00)
[2020-12-29] MEDS ORDERED: LR 60ML/HR IV SCH (06:00)
[2020-12-29] MEDS ORDERED: GABAPENTIN 300 MG CAP PO SCH (06:00)
[2020-12-29] MEDS ORDERED: BUPIVACAINE 0.5 % 5 MG/1 ML PF 10ML VIAL ONE (06:14)
[2020-12-29] MEDS ORDERED: BACITRACIN INJ 50,000 UNIT VIAL ONE (06:30)
[2020-12-29] MEDS ORDERED: BUPIVACAINE/EPINEPHRINE 0.5% MPF 1:200,000 30 ML VIAL ONE (06:30)
[2020-12-29] MEDS ORDERED: PROPOFOL IV EMULSION 10 MG/ML 20 ML VIAL IV ONE (06:42)
[2020-12-29] MEDS ORDERED: MIDAZOLAM HCL 1 MG/ML 2ML VIAL ONE ×2 (06:43)
--- NOTE | 2020-12-29 06:56 | History & Physical Bridge Note ---
Date of Service December 29, 2020 History & Physical Bridge Note I have examined the patient, reviewed the History & Physical and in the interval since the performance of the History & Physical I have noted the following changes of clinical significance: no changes noted
[2020-12-29] MEDS ORDERED: ePHEDrine sulfate 50 MG/ML AMP IV PRN (07:03)
[2020-12-29] MEDS ORDERED: ATROPINE SULFATE 0.1 MG/ML 10ML SYR IV PRN (07:03)
[2020-12-29] MEDS ORDERED: ONDANSETRON INJ 2 MG/ML 2 ML VIAL IV PRN ×2 (07:03→09:55)
[2020-12-29] MEDS ORDERED: fentaNYL citrate 100 MCG/2 ML VIAL IV PRN (07:03)
[2020-12-29] MEDS ORDERED: PHENYLEPHRINE 100MCG/ML 5ML SYR ONE (07:28)
[2020-12-29] MEDS ORDERED: DEXAMETHASONE SOD INJ 4 MG/ML VIAL ONE (07:39)
[2020-12-29] MEDS ORDERED: ONDANSETRON INJ 2 MG/ML 2 ML VIAL ONE (07:39)
--- NOTE | 2020-12-29 08:46 | Operative Report ---
Post Operative Report Pre & Post Diagnosis Operation Date: 12/29/20 07:00 Pre-Op Diagnosis: Left Hip Degenerative Joint Disease Post-Op Diagnosis: Left Hip Degenerative Joint Disease I identified the patient and participated in the time-out.: Yes Procedure Operation Date: 12/29/20 07:00 Actual Procedures p Left Total Hip Arthroplasty(Left) - Rudy Jameson MD Surgeon Rudy Jameson MD Safety And Security Manager LISET Santoro Estimated Blood Loss 200 Findings Consistent with Post-Op Diagnosis Operative findings were advanced left hip DJD. She had grade 4 [id number] disease of the femoral head and acetabulum. She had a fairly significant anterior acetabular osteophyte with fairly neutral version of her acetabulum. Moderate-sized joint effusion. Fluids 800 cc. Specimens Left femoral head sent for pathology. Drains None. Anesthesia Type Spinal MAC Complications none Disposition Accompanied Patient To Recovery: Yes Disposition: Recovery Room Indications Patient is a 70-year-old fairly active female has had a long history of multiple joint problems in the past. She had a right hip replaced in the past as well as her left knee. Over the past year she is developed increased pain discomfort left hip. X-rays show advanced hip arthritis. She had fairly concentric disease. Failed conservative measures and elected proceed with total hip arthroplasty. Description of Procedure Operative implants consist of: 1. Biomet G7 size 52 metal acetabular shell. 2. 6.5 cancellous acetabular screws 135 mm length 120 mm length. 3. Grant hole security assurance analyst. 4. Highly cross-linked polyethylene liner with a 52 mm outer diameter, 36 mm inner diameter with a segovia placed inferior and posterior. 5. DePuy Corail size 10 KLA femoral stem. 6. +5/36 mm ceramic articular ball. The patient was taken to the operating identified and placed on the operating table supine position protectors were properly padded. IV antibiotics tried by anesthesia team. A spinal anesthetic had been implemented holding area. Fritz catheter was placed in sterile fashion. The patient then placed in the right lateral decubitus position. Axillary roll was placed. A Stulberg hip positioner was used for positioning. The left hip and leg were then prepped and draped in usual sterile fashion. A posterior lateral approach of the left hip was then performed to a curvilinear incision centered over the greater trochanter. Sharp dissection was carried through subcutaneous tissue down to the IT band gluteal fascia but the IT band gluteal fascia incised longitudinally in line with skin incision. The underlying greater bursa was excised. The piriformis and external rotators were tagged and taken off the posterior aspect of the femur. Great care was taken throughout the procedure protect the sciatic nerve at all times. A posterior capsulotomy was then performed leaving a large flap for later repair. Hip was internally rotated and dislocated. Femoral neck osteotomy cut was made with Final Cut about 7 mm above the lesser trochanter. Femoral head was removed and sent for pathology. The femur was retracted anteriorly. Attention drawn the acetabulum. The acetabular labrum was excised. The pulmonary fat was excised. Sequential reaming of the acetabular was then performed begin with size 43 and progressing up to a 51. We did reamed with a 52 and then placed a 52 mm Biomet G7 acetabular shell in about 40 degrees lateral opening and 20 degrees of anteversion. A large anterior osteophyte was removed. The cup was fixed with 266.5 cancellous acetabular screws. Trial liner was placed. Attention drawn the femur. The proximal femur was entered with a cookie-cutter followed by canal finder. I then began broaching began with an 8 and progressed up to 10. Got excellent fit of the 10. I then used a calcar reamer to smooth and off the calcar. I then trialed the hip and the +5 articular ball provide full stability full extension and external rotation and flexion to 90 degrees with over 50 degrees of internal rotation. I did elect to place a segovia inferior and posterior to maximize her stability in flexion due to her anterior osteophyte formation. Attention drawn to place these implants. All trial implants were removed. An apex hole security assurance analyst was placed. Highly cross-linked polyethylene liner with a placed inferior and posterior was then impacted in position. A DePuy size 10 KLA femoral stem was impacted in position. +5/36 mm ceramic articular ball was placed. Hip was located once again found to be stable. Attention drawn toward closing. The wound was irrigated with copious amounts of pulsatile lavage solution. I injected locally with 60 cc of half percent Marcaine with epinephrine. The posterior capsule and external rotators were then repaired through drill holes in the posterior trochanter with #2 Tycron suture. The IT band gluteal fascia then closed in 1 PDS suture in running fashion with subcutaneous tissue then closed with 2 layers with a deep layer #1 Vicryl suture and subcutaneous tissues with 2-0 Dexon suture in a buried interrupted fashion. Skin was closed with skin albert. The leg was then cleaned and dried a sterile dressing composed of Xeroform, 4 x 4's, ABD pad, foam tape was applied. Patient then transferred to the recovery room in stable condition. The patient tolerated the procedure well and there were no complications. Yoel Santoro, my physician customer assistant, was present for the entire procedure. His assistance was essential and required for appropriate patient positioning, prepping and draping, surgical exposure, performing the technical details of the operation, placement the implants, closure of the wound, and placement of the sterile bandage. I attest to the content of the Intraoperative Record and any orders documented therein. Any exceptions are noted below.
--- NOTE | 2020-12-29 09:11 | XRay Report ---
XR hip 1V LT w pelvis CLINICAL HISTORY: IN PACU - A/P PELVIS and LATERAL HIP COMPARISON: 03/10/2016 DISCUSSION: There is again evidence for a total right hip arthroplasty. There is now evidence for a t otal left hip arthroplasty. There is no dislocation. The medial flanges from the underlying bone x 1.8 mm. There are overlying skin albert. There is gas present within the soft tissues consis tent with recent surgery. IMPRESSION: Interval placement of a total left hip arthroplasty. ACT 112: Negative or not required by law. Electronically signed by: Tye Petersen M.D. 12/29/2020 9:09 AM
--- NOTE | 2020-12-29 09:23 | Anesthesiology Progress Note ---
Date of Service December 29, 2020 Anesthesia Post Procedure Vital Signs Vital Signs: Temp Pulse Pulse Resp BP Pulse Ox 12/29/20 09:16 36.5 C 88 17 148/80 H 96 12/29/20 09:05 89 16 154/79 H 95 12/29/20 08:55 88 16 142/70 H 98 12/29/20 08:45 90 16 136/78 95 12/29/20 08:35 36.1 C L 93 H 22 114/63 93 12/29/20 05:25 36.9 C 91 H 20 182/79 H 94 Pain Intensity Left Hip: Pain Intensity: 5 Transfer of Care Handoff Completed per policy Notes Mental Status: alert / awake / arousable and participated in evaluation Patient Amnestic to Procedure: Yes Nausea / Vomiting: adequately controlled Pain: adequately controlled Airway Patency, RR, SpO2: stable & adequate BP & HR: stable & adequate Hydration State: stable & adequate Neuraxial Anesthesia: was administered and sensory block is resolving Anesthetic Complications: no major complications apparent and Pt Satisfied with anesthetic care
[2020-12-29] MEDS ORDERED: bisacodyL 10 MG SUPP PR PRN (09:55)
[2020-12-29] MEDS ORDERED: HYDROmorphone INJ 0.5 MG/0.5 ML SYR IV PRN (09:55)
[2020-12-29] MEDS ORDERED: ALUMINUM/MAGNESIUM SUSP 30 ML UDC PO PRN (09:55)
[2020-12-29] MEDS ORDERED: MAGNESIUM HYDROXIDE SUSP 30 ML UDC PO PRN (09:55)
[2020-12-29] MEDS ORDERED: NALOXONE HCL 0.4 MG/1 ML VIAL/CARP IV PRN (09:55)
[2020-12-29] MEDS ORDERED: METOCLOPRAMIDE HCL INJ 5 MG/ML 2 ML VIAL IV PRN (09:55)
[2020-12-29] MEDS ORDERED: traMADol HCL 50 MG TABLET PO PRN (09:55)
[2020-12-29] MEDS: SODIUM CHLORIDE 0.9% 1000ML 1,000 ML IV SCH ×2 (10:25→20:58)
[2020-12-29] MEDS: KETOROLAC TROMETHAMINE 15 MG/ML VIAL IV SCH ×3 (11:12→23:08)
[2020-12-29] MEDS: ASPIRIN 81 MG ECTAB PO SCH ×2 (11:12→21:00)
[2020-12-29] MEDS: MULTIVITAMIN TAB PO SCH (11:12)
[2020-12-29] MEDS: VALSARTAN 80 MG TAB PO SCH (11:12)
[2020-12-29] MEDS: DOCUSATE SODIUM 100 MG CAP PO SCH ×2 (11:14→21:00)
[2020-12-29] MEDS: ceFAZolin 2000MG 2,000 MG/15 ML SYR IV SCH ×2 (14:00→21:04)
[2020-12-29] MEDS: ACETAMINOPHEN 500 MG TAB PO SCH ×2 (14:00→21:01)
[2020-12-29] MEDS ORDERED: TRANEXAMIC ACID / 0.7% NACL 1,000 MG/100 ML BAG IV SCH (14:30)
[2020-12-29] MEDS: FERROUS GLUCONATE 324 MG TAB PO SCH (17:13)
[2020-12-29] MEDS: ASCORBIC ACID 500 MG TAB PO SCH (17:14)
[2020-12-29] MEDS ORDERED: SENNA 8.6 MG TAB PO SCH (21:00)
[2020-12-30] MEDS: SODIUM CHLORIDE 0.9% 1000ML 1,000 ML IV SCH (05:39)
[2020-12-30] MEDS: ACETAMINOPHEN 500 MG TAB PO SCH ×2 (05:40→13:06)
[2020-12-30] MEDS: KETOROLAC TROMETHAMINE 15 MG/ML VIAL IV SCH ×2 (05:40→11:02)
[2020-12-30 07:11] LABS: Basophils # (auto) 0.01 K/uL (0-0.2); Basophils % (auto) 0.1 %; Eosinophils # (auto) 0.01 K/uL (0-0.5); Eosinophils % (auto) 0.1 %; Hematocrit (blood only) 36.5 % (37-47); Hemoglobin 12.8 g/dL (12.0-16.0); Immature Granulocytes # (auto) 0.05 K/uL (0.00-0.02); Immature Granulocytes % (auto) 0.3 %; Lymphocytes # (auto) 1.76 K/uL (1.2-3.4); Lymphocytes % (auto) 10.7 %; Mean Corpuscular Hemoglobin 29.4 pg (25-34); Mean Corpuscular Hgb Conc 35.1 g/dL (32-36); Mean Corpuscular Volume 83.9 fL (80-100); Mean Platelet Volume 10.5 fL (7.4-10.4); Monocytes # (auto) 1.34 K/uL (0.11-0.59); Monocytes % (auto) 8.2 %; Neutrophils # (auto) 13.23 K/uL (1.4-6.5); Neutrophils % (auto) 80.6 %; Platelet Count 243 K/uL (130-400); RDW Coefficient of Variation 14.1 % (11.5-14.5); RDW Standard Deviation 43.3 fL (36.4-46.3); Red Blood Count 4.35 M/uL (4.2-5.4)
[2020-12-30 07:38] LABS: BUN Creatinine Ratio 14.4 (10-20); Creatinine Clr Calc Pharmacy 74.3 ml/min; Est GFR (Non-African American) 74.2; Potassium 3.2 mmol/L (3.5-5.1)
[2020-12-30] MEDS ORDERED: dexAMETHasone 4 MG TAB PO SCH (08:00)
[2020-12-30] MEDS: MULTIVITAMIN TAB PO SCH (08:49)
[2020-12-30] MEDS: FERROUS GLUCONATE 324 MG TAB PO SCH (08:49)
[2020-12-30] MEDS: ASPIRIN 81 MG ECTAB PO SCH (08:49)
[2020-12-30] MEDS: DOCUSATE SODIUM 100 MG CAP PO SCH (08:49)
[2020-12-30] MEDS: VALSARTAN 80 MG TAB PO SCH (08:49)
[2020-12-30] MEDS: ASCORBIC ACID 500 MG TAB PO SCH (08:49)
[2020-12-30] MEDS ORDERED: POTASSIUM CHLORIDE CRTAB 20 MEQ TABCR PO ONE ×2 (09:56→18:00)
--- NOTE | 2020-12-30 17:43 | Progress Notes ---
DATE: 12/30/2020 SUBJECTIVE: A 70-year-old white female postop day 1 from a left hip replacement. She is doing quite well. She really has minimal pain. Therapy has gone well. She feels really comfortable and wants to go home. OBJECTIVE: VITAL SIGNS: Temperature is 36.5. Vital signs stable. GENERAL: Shows a pleasant, middle-aged female. She is sitting up at her bedside chair, looks comfortable. LUNGS: Clear to auscultation. HEART: Has a regular rate and rhythm. ABDOMEN: Soft, nontender, nondistended. EXTREMITIES: Grossly neurovascularly intact except as follows: Examination of the left hip reveals the leg lengths to be equal. Dressing is clean, dry and intact. Thigh is soft and supple. Her hip is located. She is neurologically intact. LABORATORY DATA: Hemoglobin 12.8. Hematocrit 36.5. Electrolytes: Potassium is low at 3.2. ASSESSMENT: A 70-year-old white female postoperative day 1 from a left hip replacement, doing pretty well. Pain has been remarkably well controlled. Hip is located. She is neurologically intact. Potassium is a little bit low, but we will supplement that today. PLAN: 1. DVT prophylaxis including thigh-high TEDs, SCDs, and aspirin twice a day. 2. PT/OT. Weight bear as tolerated. Left total hip protocol. 3. Pain control, doing well with current pain regimen. 4. Hypokalemia. We will supplement her potassium with oral potassium. 5. Disposition: Plan to discharge to home and she is hoping to go home this afternoon. She will have home health.
--- NOTE | 2021-01-04 07:01 | Discharge Summary ---
Date of Service January 04, 2021 Discharge Data Consultations 12/30/20 08:00 Consult Case Management - Discharge Planning Routine Procedures Performed Operation Date: 12/29/20 07:00 Actual Procedures p Left Total Hip Arthroplasty(Left) - Rudy Jameson MD Hospital Course (1) Status post total hip replacement, left: This patient is a 70 year old female admitted on 12/29/20 and underwent total hip arthroplasty. She tolerated the procedure well and there were no complications. Transferred to the PACU post op and later to the orthopedic floor for further care. She was given ancef for antibiotic prophylaxis. She was also given ANNA MARIE stockings, SCDs, and aspirin for DVT prophylaxis. Hemoglobin, hematocrit, and vital signs were monitored during her hospital stay and remained stable. Did not require any blood transfusions. There were no complications during her hospital stay. By post op day #1 the patient was tolerating a regular diet, pain was reasonably controlled with oral pain medicine, and she was participating in physical therapy. On post op day #1 the patient was discharged home and set up with home health care. She was given printed discharge instructions including prescriptions for extra strength tylenol, aspirin, iron supplement, and tramadol. Continue physical therapy, weight bearing as tolerated. Continue hip precautions. Continue ANNA MARIE stockings. Follow up approximately 2 weeks post op or sooner if there are problems or concerns. Coding Level of Care Code None Diagnoses Status post total hip replacement, left Z96.642
== END 2020-12-30 14:28 | disposition home health service (06) ==
LOC: 3E 05:12 → ASU 05:12

== ENCOUNTER 2025-09-05 07:10 | Observation (INO) ==
--- NOTE | 2025-08-11 09:44 | PAT Medication Instructions ---
Medication Instructions Date of Service August 11, 2025 Home Medications Medication Instructions Recorded amoxicillin 500 mg tablet 2,000 mg (4 x 500 mg) PO ONCE #4 03/13/24 tabs amoxicillin 500 mg tablet 2,000 mg (4 x 500 mg) PO ONCE atorvastatin 40 mg tablet 40 mg PO QAM indapamide 2.5 mg tablet 2.5 mg PO QAM metoprolol succinate 50 mg capsule sprinkle, ext. release 24 hr 50 mg PO QAM valsartan 320 mg tablet 320 mg PO QAM Continue as directed amoxicillin 500 mg tablet 2,000 mg (4 x 500 mg) PO ONCE DO NOT take the morning of surgery indapamide 2.5 mg tablet 2.5 mg PO QAM valsartan 320 mg tablet 320 mg PO QAM Take morning of surgery With a small sip of water, OTHERWISE NOTHING TO EAT OR DRINK AFTER MIDNIGHT: atorvastatin 40 mg tablet 40 mg PO QAM metoprolol succinate 50 mg capsule sprinkle, ext. release 24 hr 50 mg PO QAM Other Notes If you have any questions please call us at [phone] or [phone] or [phone] or [phone]
--- NOTE | 2025-08-13 10:37 | Anesthesiology Consultation ---
Date of Service August 13, 2025 Assessment & Plan (1) Encounter for pre-operative examination: - Check BSG DOS - Infectious disease screening: Per assessment on 08/13/25- No known recent infectious disease contacts or current infectious disease symptoms. - Outpatient joint assessment: Pt currently scheduled for inpatient pathway. If surgeon requests review for outpatient joint pathway, patient is not a recommended candidate for outpatient joint program from anesthesia standpoint based on available information. Chart Review Chart Review: Acceptable Risk for Surgery and Patient seen in Pre Admission Testing Teaching & Discussion Pre-Anesthesia Teaching/Discussion Notes: Instructed NPO after midnight before surgery,except medications with 15 cc of water. Medication instructions provided according to the PAT guidelines. History Surgery Operation Date: 09/05/25 07:00 Proposed Procedures p Right Total Knee Arthroplasty - Rudy Jameson MD Height/Weight Height: 5 ft 6 in Weight: 93.5 kg Allergies Allergy/AdvReac Type Severity Reaction Status Date / Time crab Allergy Intermediate Rash, hives Verified 08/05/25 08:01 CYNTHIA Inhibitors AdvReac Mild Cough Verified 08/05/25 08:01 Medications Home Medications Medication Instructions Recorded Confirmed Last Taken amoxicillin 500 mg tablet 2,000 mg (4 x 500 mg) PO ONCE #4 03/13/24 08/05/25 Unknown tabs atorvastatin 40 mg tablet 40 mg PO QAM 06/13/25 08/05/25 Unknown indapamide 2.5 mg tablet 2.5 mg PO QAM 08/05/25 08/05/25 Unknown metoprolol succinate 50 mg capsule 50 mg PO QAM 08/05/25 08/05/25 Unknown sprinkle, ext. release 24 hr valsartan 320 mg tablet 320 mg PO QAM 08/05/25 08/05/25 Unknown Past Medical History Medical History Arthritis Hx of migraines Hx of ulcerative colitis Stable Hyperlipidemia Hypertension Obesity Pre-diabetes Exercise / Class Metabolic Activity III < 4 Walking/Shop/Light housework Past Family History Family History Father Family history of diabetes mellitus Other No family history of adverse response to anesthesia Past Surgical History Surgical History H/O non-cataract eye surgery Left eye floaters lasered History of section x1 History of cholecystectomy History of colonoscopy Multiple History of esophagogastroduodenoscopy (EGD) History of hysterectomy Total History of postoperative nausea and vomiting History of tooth extraction History of total hip arthroplasty R/L Left ROBINSON: SAB at L3 (2 attempts), [facility] (12/29/20) History of total knee replacement Left Past Anesthesia History No Hx of Anesthesia Complications and No Family Hx of Anesthesia Complications History of PONV No Hx of Motion Sickness and History of PONV Social History Smoking Status: Former smoker Do You Dip or Chew Tobacco: No Smoking End Date: In college years Hx Alcohol Use: Yes Alcohol type: beer and hard liquor alcohol intake frequency: a few times a month substance use type: does not use Review of Systems Rare palpitations. Patient denies chest pain, shortness of breath, fever, chills, cough, wheezing. Physical Exam Vital Signs BP 101/67 P 69 TEMP 97.8 SP02 95%RA RESP 16 Physical Full cervical extension range of motion. Full TMJ range of motion. TMD 3 finger breaths Mallampati Score II Dentition: missing sides/molars, tooth pentecostalism (upper front right) Lungs: clear throughout to auscultation Cardiac: regular rate and rhythm, no murmurs noted Spine: normal Carotid arteries: negative bruit Extremities: no LE edema Lab Results Anesthesia Preop Results Results Anesthesia Widget: WBC 9.77 K/ul (4.8-10.8) 08/13/25 Hgb 14.7 g/dl (12.0-16.0) 08/13/25 Hct 42.0 % (37.0-47.0) 08/13/25 Plt 268 K/uL (130-400) 08/13/25 Na 138 mmol/L (136-145) 08/13/25 K 3.6 mmol/L (3.5-5.1) 08/13/25 Cl 100 mmol/L (98-107) 08/13/25 CO2 28 mmol/L (21-32) 08/13/25 BUN 17 mg/dl (6-23) 08/13/25 Creat 1.00 mg/dl (0.6-1.2) 08/13/25 Glucose Level 157 mg/dl (70-99(Fasting)) H 08/13/25 PT 10.2 Seconds (9.0-12.0) 08/13/25 PTT 25 Seconds (21-31) 08/13/25 INR 1.0 (0.9-1.1) 08/13/25 Blood Type AB Positive 08/13/25 Antibody Screen NEGATIVE 08/13/25 Testing Electrocardiogram Date: 08/13/25 SR with first degree AVB. 66bpm. LAD. Minimal voltage criteria for LVH, may be normal variant. Chest X-Ray Date: 08/13/25 FINDINGS: Stable mild cardiomegaly without pulmonary vascular congestion. No consolidation or pleural effusion seen. Stable hyperexpanded lungs. IMPRESSION: No acute findings.
--- NOTE | 2025-08-28 20:08 | History & Physical Report ---
Date of Service August 28, 2025 Assessment & Plan (1) Right knee DJD: Status post bilateral hip and left knee arthritis. She is failing conservative management. We have actually scheduled her for knee replacement in the past but she canceled due to COVID issues right now get her right knee fixed. Plan: We are going to take her to the operating do a right total knee replacement but the risks and benefits procedure explained. Informed consent was obtained. Will plan using aspirin for DVT prophylaxis. Should be in the hospital overnight and discharge postop day 1. (Special equipment proposed recovery.. (2) Disorder of left rotator cuff: (3) Disorder of right rotator cuff: (4) Encounter for pre-operative examination: History of Present Illness Chief Complaint: . Persistent right knee pain and discomfort. Primary Care Provider: Shay Novak MD . The patient is a 75-year-old long-term patient of ours who presents now for treatment of her right knee. She has a history of bilateral hip replacement and had a left knee replacement in the past. Over the past several years she has developed increased pain discomfort in the right knee. We did put shots in it it does help. They become less successful over time. She is happy with her other joints and would like to have her right knee replaced. Is global pain. The more he is on it the more it hurts. Limps more as the day goes on. Allergies Allergy/AdvReac Type Severity Reaction Status Date / Time crab Allergy Intermediate Rash, hives Verified 08/05/25 08:01 CYNTHIA Inhibitors AdvReac Mild Cough Verified 08/05/25 08:01 Home Medications Medication Instructions Recorded Confirmed Type amoxicillin 500 mg tablet 2,000 mg (4 x 500 mg) PO ONCE #4 03/13/24 08/05/25 Rx tabs atorvastatin 40 mg tablet 40 mg PO QAM 06/13/25 08/05/25 History indapamide 2.5 mg tablet 2.5 mg PO QAM 08/05/25 08/05/25 History metoprolol succinate 50 mg capsule 50 mg PO QAM 08/05/25 08/05/25 History sprinkle, ext. release 24 hr valsartan 320 mg tablet 320 mg PO QAM 08/05/25 08/05/25 History Past Med/Surg History Problem List Encounter for pre-operative examination Disorder of left rotator cuff Disorder of right rotator cuff Right knee DJD Medical History Arthritis Hx of ulcerative colitis Stable Pre-diabetes Hx of migraines Hyperlipidemia Obesity Hypertension Surgical History History of postoperative nausea and vomiting History of total hip arthroplasty R/L Left ROBINSON: SAB at L3 (2 attempts), [facility] (12/29/20) History of tooth extraction H/O non-cataract eye surgery Left eye floaters lasered History of total knee replacement Left History of cholecystectomy History of hysterectomy Total History of section x1 History of esophagogastroduodenoscopy (EGD) History of colonoscopy Multiple Family History Father Family history of diabetes mellitus Other No family history of adverse response to anesthesia Social History Smoking Status: Former smoker Tobacco Type: Cigarettes Second Hand Exposure: Yes (as a child); Do You Dip or Chew Tobacco: No; Hx Alcohol Use: Yes Alcohol type: beer and hard liquor Preferred Language: Mauritian Communication Ability: Effective Visual Impairment: No Limitations Director Of Sales Marketing Required: No Beliefs That Will Affect Care: None marital status: Current Living Situation: Spouse Feels Safe at Home: Yes Assistive Devices: Glasses Review of Systems All systems reviewed & are unremarkable except as noted in HPI & below. Physical Exam . Physical examination reveals a pleasant healthy middle-age female. Examination of the right knee reveals a moderate soft tissue envelope. She walks independently. She got varus alignment to her knee. Range of motion about 5 degrees short of full extension to 125 degrees of flexion. No particular pain with hip motion. She is neurologically intact. Constitutional WD/WN, vitals as above Respiratory normal respiratory effort, lungs clear to auscultation Cardiovascular RRR, no murmur, no edema Gastrointestinal (Abdomen) normal bowel sounds, soft, nontender, no hepatosplenomegaly Results & Data Results & Data Laboratory Results . Diagnostic Findings . X-ray of the right knee reviewed. She has advanced right knee DJD. She got complete loss of lateral joint space. She got osteophytes primarily laterally. Left knee replacement looks to be in good position. PG Care Time/CCT Total # of Minutes Spent Total Time Spent with Patient: Total time spent is greater than 50% in coordination of care (as documented) at patient's floor/unit and/or counseling patient: Coding Level of Care Code None Diagnoses Right knee DJD M17.11 Disorder of left rotator cuff M67.912 Disorder of right rotator cuff M67.911 Encounter for pre-operative examination Z01.818
[2025-09-05] MEDS ORDERED: BUPIVACAINE 0.25% PF 30 ML VIAL ONE (07:15)
[2025-09-05] MEDS ORDERED: BUPIVACAINE 0.5 % 5 MG/1 ML PF 10ML VIAL ONE (07:15)
[2025-09-05] MEDS ORDERED: MIDAZOLAM HCL 1 MG/ML 2ML VIAL ONE (07:42)
[2025-09-05] MEDS: LR 500ML BOLUS, THEN 15ML/HR IV SCH (08:00)
[2025-09-05] MEDS: LR 60ML/HR IV SCH (08:02)
[2025-09-05] MEDS: ACETAMINOPHEN 500 MG TAB PO SCH ×2 (08:06→14:46)
[2025-09-05] MEDS: FAMOTIDINE 20 MG TAB PO SCH (08:06)
[2025-09-05] MEDS: CeleBREX 200 MG CAP PO SCH (08:06)
[2025-09-05] MEDS: dexAMETHasone**PF** 10 MG/ML VIAL IV SCH (08:07)
[2025-09-05] MEDS: METOCLOPRAMIDE HCL 10 MG TABLET PO SCH (08:07)
[2025-09-05] MEDS ORDERED: ATROPINE SULFATE 0.1 MG/ML 10ML SYR IV PRN (08:11)
[2025-09-05] MEDS ORDERED: ONDANSETRON INJ 2 MG/ML 2 ML VIAL IV PRN ×2 (08:11→13:49)
[2025-09-05] MEDS ORDERED: ONDANSETRON INJ 2 MG/ML 2 ML VIAL ONE (08:26)
[2025-09-05] MEDS ORDERED: PROPOFOL IV EMULSION 10 MG/ML 20 ML VIAL IV ONE ×2 (08:27→10:32)
--- NOTE | 2025-09-05 08:46 | History & Physical Bridge Note ---
Date of Service September 05, 2025 History & Physical Bridge Note I have examined the patient, reviewed the History & Physical and in the interval since the performance of the History & Physical I have noted the following changes of clinical significance: no changes noted
[2025-09-05] MEDS: ORTHO JOINT ANESTHETIC ONE (09:46)
[2025-09-05] MEDS: ROPIV 0.5% 246mg, Ketorolac 30mg, EPINEPHrine 0.5mg in NSS INFIL SCH (10:14)
[2025-09-05] MEDS ORDERED: ePHEDrine sulfate 50 MG/5 ML SYR ONE (10:43)
[2025-09-05] MEDS ORDERED: KETOROLAC 30 MG/ML VIAL ONE (10:44)
--- NOTE | 2025-09-05 10:52 | Operative Report ---
PG Post Operative Report Pre & Post Diagnosis Operation Date: 09/05/25 09:00 Pre-Op Diagnosis: Right Knee Degenerative Joint Disease Post-Op Diagnosis: Right Knee Degenerative Joint Disease I identified the patient and participated in the time-out.: Yes Procedure Operation Date: 09/05/25 09:00 Actual Procedures p Right Total Knee Arthroplasty(Right) - Rudy Jameson MD Surgeon Rudy Jameson MD Career Development Consultant Faizan Fink PA-C Estimated Blood Loss 50 Findings Consistent with Post-Op Diagnosis Specimens Right knee sent for pathology. Anesthesia Type Spinal MAC Complications none Disposition Accompanied Patient To Recovery: No Indications The patient is a 75-year-old female whose had a long history of arthritic joints in her lower extremities. She has had both hips replaced as well as the left knee. Over the years she developed increased pain discomfort her right knee. She failed conservative measures. X-rays reveal advanced lateral compartment DJD. She elected proceed with total knee arthroplasty. Description of Procedure Operative implants consist of: 1. Biomet Vanguard size 62.5 right posterior stabilized femoral component. 2. Biomet size 67 tibial tray. 3. 10 mm posterior stabilized polyethylene insert. 4. 28 x 8 all poly patella. The patient was taken to the op room, identified, placed on the operating table in the supine position. All contact areas were appropriately padded. IV antibiotics were provided by the anesthesia team. A spinal anesthetic and adductor canal block had been provided in the holding area. A Fritz catheter was placed in sterile fashion. A right thigh tent was then placed. The right lower extremity was then prepped and draped in usual sterile fashion. The right leg was elevated exsanguinated with use of an Esmarch and Maryam placed at 300 mmHg. An anterior approach of the right knee was then performed through a longitudinal incision centered over the patella. Sharp dissection was Through subcutaneous tissue down to the extensor mechanism. A medial parapatellar arthrotomy incision made. Some subperiosteal dissection was carried out medially. The fat pad was resected from the patella tendon. The lateral patellofemoral ligament was released. Patella subluxate laterally and the knee was flexed. The osteophytes taken off distal femur. The ACL and PCL were then released from the distal femur the tibia subluxated anteriorly. The external tibial alignment jig was then placed on the anterior face of the tibia and adjusted 12 mm medially. Proximal tibial cut was made remove about 3 to 4 mm of bone from medial side. Tibia sized to a size 67. Attention drawn the femur. The distal femur from the sharp drill. Intramedullary canal was suction. Right 5 degree valgus cutting guide was placed. The distal femoral cutting block was pinned in place. Distal femoral cut was made to take an additional 3 mm of bone off distal femur. The femur was then sized to a size 62.5. The AP cutting block was pinned parallel to the epicondylar axis which was 4 degrees of external rotation. The anterior cut, anterior chamfer, posterior cut, posterior chamfer cuts were made. The box cutting guide was placed in a just slightly lateral and the box cut was made. The knee was flexed. The remnants of the medial and lateral menisci were excised. The osteophytes were taken off the posterior aspect of femur. A trial femoral component was placed. The tibial tray was pinned in Bryanna external rotation and the drill and stem punch were used to create defect in the proximal tibia for the tibial tray. Knee was then trialed and the 10 mm insert fit most appropriately. Attention drawn the patella. The patella was cleaned of all soft tissues. Patella thickness measured 21 mm in thickness and was cut down to 13. Was sized to a size 28 patella. The lug holes were drilled for the 28 patella. The lateral osteophytes removed. Patella button was placed. Knee was taken through range of motion and patella tracked nicely with no thumbs test. Attention jointer placed in permanent components. All trial components were removed. Bone plug was placed into distal femur limit blood loss. A double batch Palacos G cement was mixed. Biomet Vanguard size 60.5 right posterior stabilized femoral component, size 67 tibial tray, a 10 mm posterior stabilized polyethylene insert, and a 28 x 8 all poly patella then cemented in place. The knee was brought out into full extension until cement hardened. Final cement check was then performed. Pericapsular tissues were injected with a total of 100 cc of Ortho mix. The patient did receive 1 g of tranexamic acid. The tourniquet was then let down for final tourniquet time 52 minutes. Hemostasis surgery was electrocautery. Extensor Meclomen closed with combination 1 PDS suture and #1 Vicryl suture in a [id number] fashion. The extensor Meclomen was checked and found to be intact. Subcutaneous tissue was then closed with 2-0 Dexon suture in a buried interrupted fashion skin was closed skin albert. The leg was then cleaned and dried and a sterile dressing with Xeroform, 4 fours, sterile cast padding, Suresh bandage were applied. Patient then transferred to the recovery in stable condition. Patient tolerated the procedure well and there were no complications. Faizan Fink, my physician community relations assistant, was present for the entire procedure. His assistance was essential and required for appropriate patient positioning, prepping and draping, surgical exposure, performing the technical details of the operation, placement the implants, closure of the wound, and placement of the sterile bandage. I attest to the content of the Intraoperative Record and any orders documented therein. Any exceptions are noted below.
--- NOTE | 2025-09-05 11:08 | XRay Report ---
XR knee RT 1 or 2V routine CLINICAL HISTORY: Surgical Post Op COMPARISON: None FINDINGS: Right knee prosthesis shows no hardware complication. There is expected soft tissue gas. S kin albert are present. IMPRESSION: Unremarkable postoperative exam. ACT 112: Negative or not required by law. Electronically signed by: Lewis Olmstead M.D. 09/05/2025 11:07 AM
--- NOTE | 2025-09-05 11:46 | Anesthesiology Progress Note ---
Date of Service September 05, 2025 Anesthesia Post Procedure Vital Signs Vital Signs: Temp Pulse Resp BP Pulse Ox O2 Del Method O2 Flow Rate 09/05/25 11:45 83 18 135/65 96 Nasal Cannula 2 09/05/25 11:30 36.5 C 78 16 127/68 95 Nasal Cannula 2 09/05/25 11:20 74 16 133/67 97 Room Air 09/05/25 11:10 72 18 133/63 96 Oxymask 2 09/05/25 11:00 72 16 109/61 98 Oxymask 5 09/05/25 10:49 36.5 C 81 12 116/53 L 94 Oxymask 10 09/05/25 07:35 36.8 C 70 18 139/71 93 Room Air Transfer of Care Handoff Completed per policy Notes Mental Status: alert / awake / arousable Patient Amnestic to Procedure: Yes Nausea / Vomiting: adequately controlled Pain: adequately controlled Airway Patency, RR, SpO2: stable & adequate BP & HR: stable & adequate Hydration State: stable & adequate Neuraxial Anesthesia: was administered and sensory block is resolving Anesthetic Complications: no major complications apparent
[2025-09-05] MEDS ORDERED: METOCLOPRAMIDE HCL INJ 5 MG/ML 2 ML VIAL IV PRN (13:49)
[2025-09-05] MEDS ORDERED: HYDROmorphone INJ 0.5 MG/0.5 ML SYR IV PRN (13:49)
[2025-09-05] MEDS ORDERED: MAGNESIUM HYDROXIDE SUSP 30 ML UDC PO PRN (13:49)
[2025-09-05] MEDS ORDERED: ALUMINUM/MAGNESIUM SUSP 30 ML UDC PO PRN (13:49)
[2025-09-05] MEDS ORDERED: NALOXONE HCL 0.4 MG/1 ML VIAL/CARP IV PRN (13:49)
[2025-09-05 14:39] VITALS: RESP 16
[2025-09-05] MEDS: SODIUM CHLORIDE 0.9% 1,000 ML IV SCH (14:41)
[2025-09-05] MEDS: KETOROLAC TROMETHAMINE 15 MG/ML VIAL IV SCH (14:46)
[2025-09-05] MEDS: ASCORBIC ACID 500 MG TAB PO SCH (17:55)
[2025-09-05] MEDS: TRANEXAMIC ACID / 0.7% NACL 1,000 MG/100 ML BAG IV SCH (17:55)
[2025-09-05] MEDS ORDERED: SENNA 8.6 MG TAB PO SCH (21:00)
[2025-09-05] MEDS: SENNA 8.6 MG TAB PO SCH (21:56)
[2025-09-05] MEDS: ASPIRIN 81 MG ECTAB PO SCH (21:56)
[2025-09-05] MEDS: DOCUSATE SODIUM 100 MG CAP PO SCH (21:56)
[2025-09-06 06:59] LABS: Hematocrit (blood only) 32.2 % (37.0-47.0); Hemoglobin 11.5 g/dL (12.0-16.0); Mean Corpuscular Hemoglobin 29.6 pg (25.0-34.0); Mean Corpuscular Volume 82.8 fL (80.0-100.0); Platelet Count 220 K/uL (130-400); RDW Standard Deviation 41.1 fL (36.4-46.3); Red Blood Count 3.89 M/uL (4.20-5.40); White Blood Count 18.04 K/ul (4.8-10.8)
[2025-09-06 07:32] LABS: Anion Gap 10.0 (3-11); Blood Urea Nitrogen 30.0 mg/dl (6-23); Calcium 8.1 mg/dl (8.6-10.3); Carbon Dioxide 24.0 mmol/L (21-32); Chloride 101.0 mmol/L (98-107); Creatinine Clr Calc Pharmacy 40.0 ml/min; Glucose 173.0 mg/dl (70-99(Fasting)); Potassium 3.5 mmol/L (3.5-5.1); Sodium 135.0 mmol/L (136-145)
--- NOTE | 2025-09-06 07:39 | Orthopedic Progress Note ---
Date of Service September 06, 2025 Assessment & Plan (1) Status post right knee replacement: Plan: 75-year-old female postop day 1 from a right knee replacement doing pretty well. Pain is controlled. She is neurologically intact. Creatinine is just slightly elevated and we will hold her Toradol and encourage p.o. intake. Plan: 1. DVT prophylaxis including thigh-high teds, SCDs, aspirin twice a day. 2. PT/OT. Weight-bear as Toller. Right total knee protocol. 3. Pain control. Doing okay with current pain regimen. 4. Slightly elevated creatinine Encourage p.o. intake and hold back Toradol. 5. Disposition. Plan is discharged to home with some home health if she does okay in therapy today. Admission and Anticipated Discharge Date Admission Date: September 05, 2025 Subjective 75-year-old female postop day 1 from right knee replacement. She is doing pretty well. Had a reasonable night. Pains been controlled. No chest pain or shortness of breath. Hoping to go home today. Physical Exam Physical Exam: Physical examination reveals a pleasant middle-age female. She is lying in bed looks pretty comfortable. Examination of the right leg reveals the dressing be clean dry and intact. Leg is well aligned. She can dorsiflex and plantarflex her foot appropriately. She can do a good straight leg raise. She is neurologically intact. Respiratory: normal respiratory effort, lungs clear to auscultation Cardiovascular: RRR, no murmur, no edema Gastrointestinal (Abdomen): normal bowel sounds, soft, nontender, no hepatosplenomegaly Results & Data Vital Signs (Past 12 Hours) Vital Signs Temp Pulse Resp BP Pulse Ox O2 Del Method 09/06/25 03:23 36.5 C 74 16 111/65 94 Room Air 09/05/25 23:15 36.4 C L 77 16 124/68 93 Room Air Laboratory Results Hemoglobin is 11.5. Mackert 32.2. Electrolytes are stable. Creatinine just slightly elevated
[2025-09-06 07:59] VITALS: BP 113/67; PULSE 66; TEMP 97.9; O2SAT 95
[2025-09-06] MEDS: dexAMETHasone 10 MG in SYRINGE 0 ML IV SCH (09:33)
[2025-09-06] MEDS: VALSARTAN 80 MG TAB PO SCH (09:36)
[2025-09-06] MEDS: INDAPAMIDE 1.25 MG TAB PO SCH (09:36)
[2025-09-06] MEDS: MULTIVITAMIN TAB PO SCH (09:37)
[2025-09-06] MEDS: ATORVASTATIN 40 MG TAB PO SCH (09:37)
[2025-09-06] MEDS: METOPROLOL SUCC 50MG EXT REL TAB PO SCH (09:37)
== END 2025-09-06 13:49 | disposition home health service (06) ==
LOC: ASU 07:10 → PACUINP 07:10 → 3W 14:33